=== PATIENT | male | born 1985 | race Caucasian/White ===

== ENCOUNTER 2017-09-07 10:35 | Day surgery (SDC) | payer OTHER ==
[2017-09-06 10:37] VITALS: BMI 29.9
[2017-09-07] MEDS ORDERED: PROPOFOL 20 ML ONE ×2 (11:14)
[2017-09-07] MEDS ORDERED: LIDOCAINE HCL/PF 2% SDV 5ML VIAL ONE (11:15)
[2017-09-07 12:50] VITALS: BP 132/84; PULSE 69; TEMP 98
== END 2017-09-07 12:50 | disposition home or self-care (01) ==
LOC: FASU-ENDO 10:35
PROVIDERS: ATTEND Internal Medicine Gastroenterology
PROC: 0DJ08ZZ Inspection of Upper Intestinal Tract, Via Natural or Artificial Opening Endoscopic (ICD-10-PCS; principal; 2017-09-07 11:33)
DX: R11.2 Nausea with vomiting, unspecified (principal)